=== PATIENT | male | born 1955 | race Caucasian/White ===

== ENCOUNTER 2025-03-08 11:59 | Outpatient (REF) | payer BC, SELFPAY ==
--- OUTSIDE RECORDS SUMMARY | 2025-03-08 12:27 | XMS_ITS | Encounter Summary ---
Author Organization [facility] Address [address] [place] [address] Care Team Providers Care Caul Dresser Name Role Phone Ruchi Read FERR[employer]BOAT TICKET TAKER Primary Care Provider [phone] Encounter Details Date Type Department Care Team (Late Contact Info) Description 09/28/2024 Telephone Internal Medicine - [facility] [address] [place] [address] Ruchi Read NP [address] [place] [address] Social History Tobacco Use Types Packs/Day Years Used Date Smoking Tobacco: Every Day Cigarettes 1 56.4 Started: 10/18/1968 Smokeless Tobacco: Never Alcohol Use Standard Drinks/Week Comments Yes 7 (1 standard drink = 0.6 oz pur e alcohol) Sex and Gender Information Value Date Recorded Sex Assigned at Male 11/22/2024 3:08 PM EST Legal Sex Male 4:53 PM EST Gender Identity Male 11/22/2024 3:08 PM EST Sexual Orientation Straight 11/22/2024 3: 08 PM EST documented as of this encounter Plan of Treatment Upcoming Encounters Date Type Department Care Team (Late st Contact Info) Description 03/13/2025 11:30 AM EDT Office Visit Pulmonology - [address] [place] [phone] Annelise Martinez MD [address] [place] [phone] documented as of this encounter Visit Diagnoses Diagnosis Chronic midline low back pain with bilateral sciatica documented in this encounter Additional Health Concerns Infection Onset Date Last Indicated Resolved Time Tuberculosis Rule-Out 11/27/2024 11/27/20242024 7:04 PM EST Respiratory Rule-Out 12/29/2024 12/29/2024 025 10:29 PM EDT COVID-19 Rule-Out 12/29/2024 12/29/2024 12/29/2024 10:29 PM EDT Influenza 12/29/2024 12/29/2024 01/22/2025 7:04 PM EDT documented as of this encounter Care Teams Caul Dresser Relationship Specialty Start Date End Date Ruchi Read NP [address] [facility] [place] [address] PCP - General 11/12/22 documented as of this encounter
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
--- OUTSIDE RECORDS SUMMARY | 2025-03-08 12:27 | XMS_ITS ---
Author Name [facility] Organization Unknown Results Test Name/Text Value Interpretation Date Range Source Citation Ref Lab Test The technical components of [place] [address] CLIA # [id number] Normal [id number] [facility] Ref Lab Test Results See Scanned Result Normal [id number] [facility] Test Results See Scanned Result Normal [id number] [facility] Test Results See Scanned Result Normal [id number] [facility] History of Medication Use Medication Directions Dispensed Refills Start Date End Date Status albuterol 2.5 mg /3 mL (0.083 %) nebulizer solution 2.5 mg 2.5 mg, nebulization, Once as needed, wheezing, Starting on Wed11/27/24 at 1525, For 1 dose, Recovery (only) 5 active diphenhydrAMINE (BENADRYL) injection 25 mg 25 mg, intravenous, Every 15 min PRN, itching, Starting on Wed11/27/24 at 1525, Recovery (only) 5 active hydrALAZINE (APRESOLINE) injection 10 mg 10 mg, intravenous, Every 10 min PRN, systolic BP greater than:, 170, Starting on Wed11/27/24 at 1535, For 8 doses, Recovery (only), For IV Push - administer undiluted at 5 mg/min 5 active HYDROmorphone (DILAUDID) injection 0.5 mg 0.5 mg, intravenous, Every 5 min PRN, severe pain or when therapies for moderate pain were not effective, Starting on Wed11/27/24 at 1525, For 5 doses, Recovery (only) 5 active lactated Ringer's infusion 100 mL/hr, intravenous, Continuous, Starting on Wed11/27/24 at 1545, Recovery (only) 5 active meperidine (PF) (DEMEROL) 25 mg/mL injection 12.5 mg 12.5 mg, intravenous, Every 15 min PRN, rigors, shivering, Starting on Wed11/27/24 at 1525, For 4 doses, Recovery (only) 5 active ondansetron ODT (ZOFRAN-ODT) disintegrating tablet 4 mg [Order 1 Start] Name: ondansetron ODT (ZOFRAN-ODT) disintegrating tablet 4 mg Signed Summary: 4 mg, oral, Every 8 hours PRN, vomiting, nausea, Starting on Wed11/27/24 at 1525, Recovery (only), -Give IV if patient is unable to take orally. -If inadequate response within 30 minutes, proceed to next- 5 active oxyCODONE (ROXICODONE) immediate release tablet 5 mg 5 mg, oral, Every 4 hours PRN, moderate pain or when therapies for mild pain were not effective, Starting on Wed11/27/24 at 1525, For 2 doses, Recovery (only) 5 active prochlorperazine (COMPAZINE) tablet 10 mg [Order 1 Start] Name: prochlorperazine (COMPAZINE) tablet 10 mg Signed Summary: 10 mg, oral, Every 6 hours PRN, nausea, vomiting, Starting on Wed11/27/24 at 1525, Recovery (only), 2nd Line Option: -Give IV or IM if patient is unable to take orally. -If inadequate response within 30 minutes, proceed 5 active sodium chloride 0.9 % flush 10 mL [Order 1 Start] Name: Insert peripheral IV Signed Summary: STAT, Once, On Wed11/27/24 at 1214, For 1 occurrence, Preprocedure [Order 1 End] [Order 2 Start] Name: Maintain IV access Signed Summary: Until discontinued, Starting on Wed11/27/24 at 1214, Until Specified, Preprocedure [Order 2 End] [Order 5 active hydroCHLOROthiazide (HYDRODIURIL) 25 mg tablet TAKE 1 TABLET BY MOUTH EVERY DAY 5 active losartan (Cozaar) 50 mg tablet Take 1 tablet (50 mg total) by mouth 1 (one) time each day. 4 active Wixela Inhub 250-50 mcg/dose diskus inhaler Inhale 1 puff by mouth 2 (two) times a day. 4 active fluticasone furoate-vilanteroL (Breo Ellipta) 100-25 mcg/dose inhaler Inhale 1 puff by mouth 1 (one) time each day. 4 active Problems Problem Status Onset Date Problem Type Date of Resolution Source Pain active EncounterDiagnosisAct [facility] Pulmonary nodule active 2023-01-19 ProblemAct [facility] Emphysema lung active 2024-06-02 ProblemAct [facility] Primary hypertension active 2024-02-23 ProblemAct [facility] Chronic back pain active 2024-09-22 ProblemAct [facility] Tobacco use disorder active 2024-04-10 ProblemAct [facility] Encounters Encounter Type Encounter Reason Primary Diagnosis Location Date Ambulatory Pain, unspecified Pain, unspecified [facility] 11/27/2024 Care Team Organization Name Specialty Phone Email Start Date End Da te [facility] Primary Care 12/27/2024 [facility] Primary Care 11/27/2024
--- OUTSIDE RECORDS SUMMARY | 2025-03-08 12:27 | XMS_ITS | Clinical Summary ---
Author Organization [address] [facility] Address [address] [place] [phone] Phone Care Team Providers Care Office Machine Embossograph Operator Name Role Phone Jacek Ruchi DOORSHAKER Primary Care Provider [phone] Allergies No known active allergies Medications losartan (Cozaar) 50 mg tablet Take 1 tablet (50 mg total) by mouth 1 (one) time each day. 90 each 1 10/17/2024 Active hydroCHLOROthia zide (HYDRODIURIL) 25 mg tablet TAKE 1 TABLET BY MOUTH EVERY DAY 90 tablet 1 11/07/2024 Active Wixela Inhub 250-50 mcg/dose diskus inhaler Inhale 1 puff by mouth 2 (two) times a day. 10/17/2024 Active ALPRAZolam (XANAX) 0.5 mg tablet Take 1 tablet 30 minutes prior to MRI scan. 2 tablet 01/31/2025 Active Active Problems Problem Noted Date Diagnosed Date Chronic back pain 09/22/2024 Overview (09/22/2024): Lumbar fusion 2002. Emphysema lung (CMS/HCC V24, CMS/HCC V28) 2023 Tobacco use disorder 04/10/2024 Primary hypertension 02/23/2024 Pulmonary nodule 01/19/2023 Overview (08/10/2024): Last Assessment & Plan: 67 y/o male, current smoker who is part of the Lung Cancer Screening Program. 1. LDCT scan performed in December shows resolution of infectious/inflammatory opacity. 9mm DAVEY pulmonary nodule remains stable. Recommend [facility] recommendation for repeat CT surveillance scan is 6-12 months. Patient requesting 6 month follow-up CT scan with office visit with PA after. 2. Patient instructed to call office with any questions or concerns. Assessment & Plan (11/16/2024 12:53 PM EST): 69-year-old man with consolidation/mass at the apex of the left upper lobe and a separate spiculated nodule of the left upper lobe that are PET avid. I had a long discussion with him and his family about the findings on his CAT scan and PET scan as described in HPI. We also talked about pulmonary nodules in general and how their size, shape, and frame changer time affect her level of suspicion for malignancy. I do think that the consolidated area at the apex is less suspicious although there is a portion of it that is PET avid as well as the separate nodule in the left upper lobe. I did discuss the options which would be including continued observation versus biopsy versus surgery. Surgery is not a great option in this case due to the size and position of these nodules. Ultimately, they want to proceed with a biopsy and I discussed a robotic bronchoscopy with biopsy with interventional pulmonary. I did also discuss this with Dr. Hannah our interventional label press operator in the office and she will see them just after I see them. All questions were answered and I will see him after the biopsies have been completed. Encounters Date Type Department Care Team Description 02/28/2025 2:30 PM EDT - 02/28/2025 11:59 PM EDT Hospital Encounter Radiology Department - [address] [phone] Falls frequently; Weakness; Syncope, unspecified syncope type Discharge Disposition: Home or Self Care 02/26/2025 8:53 AM EDT - 02/26/2025 11:59 PM EDT Hospital Encounter [facility] CT Scan [address] [place] [id number] Pneumonia due to infectious organism, unspecified laterality, unspecified part of lung Discharge Disposition: Home or Self Care 02/20/2025 [facility]phone [facility] [address] [facility] [place] [phone] Ruchi Read NP MRI 02/16/2025 9:33 AM EDT - 02/16/2025 11:59 PM EDT Hospital Encounter Radiology Department - [address] [phone] Falls frequently; Weakness; Syncope, unspecified syncope type Discharge Disposition: Home or Self Care 02/16/2025 9:33 AM EDT - 02/16/2025 11:59 PM EDT Hospital Encounter Radiology Department - [address] [phone] Falls frequently; Weakness; Syncope, unspecified syncope type Discharge Disposition: Home or Self Care 02/06/2025 Telephone Internal Medicine - [address] [phone] Ruchi Read NP Forms/questionnaires (RMV--Medical Evaluation Form) 01/29/2025 2:00 PM EDT Office Visit Internal Medicine - [address] [phone] Ruchi Read NP Falls frequently (Primary Dx); Weakness; Syncope, unspecified syncope type; Chronic midline low back pain without sciatica; Hyperesthesia; Transient alteration of awareness 01/24/2025 Telephone Internal Medicine - [address] [phone] Ruchi Read NP Fall 01/22/2025 Telephone Internal Medicine - [address] [phone] Ruchi Read NP 01/02/2025 1:22 PM EDT - 01/02/2025 11:59 PM EDT Hospital Encounter [facility] - [address] [phone] Renal mass Discharge Disposition: Home or Self Care 12/29/2024 2:15 PM EDT Office Visit Internal Medicine - [address] [phone] Ruchi Read NP Encephalopathy, unspecified type (Primary Dx); Shakes; Acute cough; Confusion; Viral upper respiratory tract infection 12/25/2024 Telephone Internal Medicine - [address] [phone] Ruchi Read NP Altered Mental Status 12/25/2024 Telephone Internal Medicine - [address] [phone] Ruchi Read NP Memory Loss from Last 3 Months Surgical History Surgery Date Site/Laterality Comments BACK SURGERY PROCEDURE: HISTORICAL BACK SURGERY HERNIA REPAIR PROCEDURE: HISTORICAL HERNIA REPAIR/ING BACK SURGERY PROCEDURE: HISTORICAL BACK SURGERY CATARACT EXTRACTION PROCEDURE: HISTORICAL CATARACT REMOVAL COLONOSCOPY TONSILLECTOMY Medical History Medical History Date Comments History of colonoscopy 08/2011 DX:Histor y of colonoscopy; COMMENT: 10 yr f/u Dr. Tean Current smoker DX:Current smoke r Unspecified hemorrhoids DX:Unspe cified hemorrhoids Diverticulitis of colon (wit hout mention of hemorrhage)(562.11) DX:Diverticulitis of colon ( without mention of hemorrhage)(562.11) Diverticulosis DX:Diverticulosi s Hemorrhoids DX:Hemorrhoids Nontoxic single thyroid nodule D X:Nontoxic single thyroid nodule; COMMENT: s/p biopsy- benign pathology Pulmonary nodule DX:Pulmonary no dule Hypertension Emphysema of lung (CMS/HCC V 24, CMS/HCC V28) Reported by Family History Medical History Relation Name Comments Lung cancer Father Diabetes Mother Relation Name Status Comments Father Mother Social History Tobacco Use Types Packs/Day Years Used Date Smoking Tobacco: Every Day Cigarettes 1 56.4 Started: 10/18/1968 Smokeless Tobacco: Never Tobacco Cessation:Ready to Q uit: Not Asked; Counseling Given: Not Answered Comments:11/22/2024 Decreased to 0.5PPD Alcohol Use Standard Drinks/Week Comments Yes 0 (1 standard drink = 0.6 oz pur e alcohol) 1 bottle wine/day Sex and Gender Information Value Date Recorded Sex Assigned at Male 11/22/2024 3:08 PM EST Legal Sex Male 4:53 PM EST Gender Identity Male 11/22/2024 3:08 PM EST Sexual Orientation Straight 11/22/2024 3: 08 PM EST Obstetrics History Last Filed Vital Signs Vital Sign Reading Time Taken Comments Blood Pressure 153/81 01/29/2025 1:58 PM EDT A Pulse 104 01/29/2025 1:58 PM EDT Temperature 36.9 ??C (98.4 ??F) 12/05/2024 10:[address] Respiratory Rate 14 12/05/2024 10:30 AM EST Oxygen Saturation 97% 12/05/2024 10:30 AM EST Inhaled Oxygen Concentration - - Weight 72.2 kg (159 lb 3.2 oz) 01/29/2025 1:58 P M EDT Height 182.9 cm (6') 01/29/2025 1:58 PM EDT Body Mass Index 21.59 01/29/2025 1:58 PM EDT Plan of Treatment Upcoming Encounters Date Type Department Care Team (Late st Contact Info) Description 03/13/2025 11:30 AM EDT Office Visit Pulmonology - [address] [phone] Annelise Martinez MD [address] [place] [address] Health Maintenance Due Date Last Done Comments DTaP,Tdap,and Td Vaccines (1 - Tdap) 1972 Pneumococcal Vaccine: 50+ Years (1 of 2 - PCV) 1972 Zoster Vaccines (1 of 2) 2003 RSV Immunization Adult Patients (1 - Risk 60-74 years 1-dose series) 2013 Depression Screening 11/16/2023 Lung Cancer Screening (Low Dose CT) 11/16/2023 09/16/2022 Medicare Annual Wellness Visit 11/16/2023 Social Influencers of Health Screening 11/16/2023 COVID-19 Vaccine ( - season) 2024 01/09/2021, 12/13/2020 Influenza Vaccine (Season Ended) 2025 Falls Risk Assessment 11/27/2025 11/27/2024 Hypertension/CHF/CAD Annual BMP Blood Test 01/29/2026 01/29/2025, 12/29/2024, 11/22/2024, Additional history exists Cholesterol Screening (Lipid Panel) 06/02/2029 06/02/2024, 06/02/2024 Colorectal Cancer Screening: Colonoscopy 08/18/2031 08/18/2021 Hepatitis C Screening Completed 02/16/2023, 023 Abdominal Aortic Aneurysm (AAA) Screen Completed 01/02/2025, 03/08/2023, 03/08/2023, Additional history exists HIB Vaccines Aged Out No longer eligi ble based on patient's age to complete this topic HPV Vaccines Aged Out No longer eligi ble based on patient's age to complete this topic Hepatitis A Vaccines Aged Out No long er eligible based on patient's age to complete this topic Hepatitis B Vaccines Aged Out No long er eligible based on patient's age to complete this topic IPV Vaccines Aged Out No longer eligi ble based on patient's age to complete this topic MMR Vaccines Aged Out No longer eligi ble based on patient's age to complete this topic Meningococcal ACWY Vaccine Aged Out N o longer eligible based on patient's age to complete this topic Meningococcal B Vaccine Aged Out No l onger eligible based on patient's age to complete this topic RSV Immunization Patients Under 20 months Aged Out No longer eligible based on patient's age to complete this topic Varicella Vaccines Aged Out No longer eligible based on patient's age to complete this topic Procedures Procedure Name Priority Date/Time Associated Diagnosis Comments VAS US DUPLEX CAROTID BILATERAL Routine 02/28/2025 2:54 PM EDT Falls frequently Weakness Syncope, unspecified syncope type CT CHEST WO CONTRAST Routine 02/26/2025 9:10 AM EDT Pneumonia due to infectious organism, unspecified laterality, unspecified part of lung MR LUMBAR SPINE WO CONTRAST Routine 02/16/2025 11:13 AM EDT Falls frequently Weakness Syncope, unspecified syncope type MR BRAIN WO CONTRAST Routine 02/16/2025 10:53 AM EDT Falls frequently Weakness Syncope, unspecified syncope type CEJA URINE CULTURE TUBE Routine 01/30/20 25 4:33 PM EDT Falls frequently Weakness Syncope, unspecified syncope type CBC WITH AUTO DIFFERENTIAL Routine 01/29/2025 2:38 PM EDT Falls frequently Weakness Syncope, unspecified syncope type URINALYSIS WITH REFLEX MICROSCOPIC AND CULTURE Routine 01/29/2025 2:38 PM EDT Falls frequently Weakness Syncope, unspecified syncope type CBC AND DIFFERENTIAL Routine 01/29/2025 2:38 PM EDT Falls frequently Weakness Syncope, unspecified syncope type COMPREHENSIVE METABOLIC PANEL Routine 01/29/2025 2:38 PM EDT Falls frequently Weakness Syncope, unspecified syncope type URINALYSIS WITH REFLEX MICROSCOPIC AND CULTURE Routine 01/29/2025 2:38 PM EDT Falls frequently Weakness Syncope, unspecified syncope type THYROID STIMULATING HORMONE WITH REFLEX TO FREE T4 AND FREE T3 Routine 01/29/2025 2:38 PM EDT Falls frequently Weakness Syncope, unspecified syncope type US RETROPERITONEAL LIMITED Routine 01/02/2025 1:50 PM EDT Renal mass EXTERNAL CT REPORT 12/31/2024 CEJA URINE CULTURE TUBE Routine 12/30/19 25 4:38 PM EDT Encephalopathy, unspecified type Shakes Acute cough Confusion Viral upper respiratory tract infection [id number], RSV, FLU A AND B QUALITATIVE RT-PCR, LOCAL REFERENCE LAB Routine 12/29/2024 3:28 PM EDT Viral upper respiratory tract infection TRIIODOTHYRONINE FREE Routine 12/29/2024 3:19 PM EDT Encephalopathy, unspecified type Shakes Acute cough Confusion Viral upper respiratory tract infection FREE THYROXINE WITH REFLEX TO FREE TRIIODOTHYRONINE Routine 12/29/2024 3:19 PM EDT Encephalopathy, unspecified type Shakes Acute cough Confusion Viral upper respiratory tract infection CBC WITH AUTO DIFFERENTIAL Routine 12/29/2024 3:19 PM EDT Encephalopathy, unspecified type Shakes Acute cough Confusion Viral upper respiratory tract infection URINALYSIS WITH REFLEX MICROSCOPIC AND CULTURE Routine 12/29/2024 3:19 PM EDT Encephalopathy, unspecified type Shakes Acute cough Confusion Viral upper respiratory tract infection CBC AND DIFFERENTIAL Routine 12/29/2024 3:19 PM EDT Encephalopathy, unspecified type Shakes Acute cough Confusion Viral upper respiratory tract infection COMPREHENSIVE METABOLIC PANEL Routine 12/29/2024 3:19 PM EDT Encephalopathy, unspecified type Shakes Acute cough Confusion Viral upper respiratory tract infection URINALYSIS WITH REFLEX MICROSCOPIC AND CULTURE Routine 12/29/2024 3:19 PM EDT Encephalopathy, unspecified type Shakes Acute cough Confusion Viral upper respiratory tract infection THYROID STIMULATING HORMONE WITH REFLEX TO FREE T4 AND FREE T3 Routine 12/29/2024 3:19 PM EDT Encephalopathy, unspecified type Shakes Acute cough Confusion Viral upper respiratory tract infection LIPID PANEL Routine 06/02/2024 HEPATITIS C SCREENING Routine 02/16/2023 CT LUNG SCREENING LOW DOSE Routine 09/16/2022 1:41 PM EST Personal history of nicotine dependence COLONOSCOPY Routine 08/18/2021 from Last 3 Months or Most Recently Relevant to Health Maintenance Results * Vascular US duplex carotid bilateral (02/28/2025 2:54 PM EDT) Anatomical Region Laterality Modality Vascular, Abdomen Ultrasound 02/28/2025 4:12 PM EDT Impressions 02/28/2025 4:17 PM EDT Multiple bilateral atherosclerotic plaques, left greater than the right. ??No evidence of 50% or greater stenosis in the internal carotid arteries. -------- FINAL REPORT -------- Dictated By: Vianey Montiel Dictated Date: 02/28/2025 16:12 ET Assigned Physician: Vianey Montiel Reviewed and Electronically Signed By: Vianey Montiel Signed Date: 02/28/2025 16:17 ET Workstation ID: [id number] Transcribed By: Self Edit Transcribed Date: 02/28/2025 16:12 ET Narrative 02/28/2025 4:17 PM EDT EXAM: ??VAS US DUPLEX CAROTID BILATERAL COMPARISON:None CAROTID ULTRASOUND FINDINGS: RIGHT: Peak external carotid artery: 99.1 cm/sec Peak vertebral: 49.6 cm/sec and antegrade Peak common carotid artery: 73.4 cm/sec Peak internal carotid artery: 79.8 cm/sec Carotid artery morphology: Multiple atherosclerotic plaques. Peak systolic ratio is normal. LEFT: Peak external carotid artery: 96.6 cm/sec Peak vertebral: 56.2 cm/sec and antegrade Peak common carotid artery: 139 cm/sec Peak internal carotid artery: 96.6 cm/sec Carotid artery morphology: Multiple atherosclerotic plaques, more prominent than contralateral side. Peak systolic ratio is normal. Any stenosis measurement is relative to the distal ICA diameters. Procedure Note Vianey Montiel MD - 02/28/2025 EXAM: VAS US DUPLEX CAROTID BILATERAL COMPARISON:None CAROTID ULTRASOUND FINDINGS: RIGHT: Peak external carotid artery: 99.1 cm/sec Peak vertebral: 49.6 cm/sec and antegrade Peak common carotid artery: 73.4 cm/sec Peak internal carotid artery: 79.8 cm/sec Carotid artery morphology: Multiple atherosclerotic plaques. Peak systolic ratio is normal. LEFT: Peak external carotid artery: 96.6 cm/sec Peak vertebral: 56.2 cm/sec and antegrade Peak common carotid artery: 139 cm/sec Peak internal carotid artery: 96.6 cm/sec Carotid artery morphology: Multiple atherosclerotic plaques, moreprominent than contralateral side. Peak systolic ratio is normal. Any stenosis measurement is relative to the distal ICA diameters. IMPRESSION: Multiple bilateral atherosclerotic plaques, left greater than the right.No evidence of 50% or greater stenosis in the internal carotid arteries. -------- FINAL REPORT -------- Dictated By: Vianey Montiel Dictated Date: 02/28/2025 16:12 ET Assigned Physician: Vianey Montiel Reviewed and Electronically Signed By: Vianey Montiel Signed Date: 02/28/2025 16:17 ET Workstation ID: [id number] Transcribed By: Self Edit Transcribed Date: 02/28/2025 16:12 ET Ruchi Read NP CV VASCULAR PROCEDURES Final Re sult * CT Chest wo Contrast (02/26/2025 9:10 AM EDT) Anatomical Region Laterality Modality Body Computed Tomogra phy 02/26/2025 10:1 1 AM EDT Impressions 02/26/2025 10:26 AM EDT Impression: 1. Improved posterior left apical consolidation, most likely representing a resolving pneumonia. 2. Improved anterior left upper lobe nodule, most likely also infectious/inflammatory. An additional follow-up CT is recommended in 6 months. Telerad KEITH ([id number]) -------- FINAL REPORT -------- Dictated By: Cami Ku Dictated Date: 02/26/2025 10:11 ET Assigned Physician: Cami Ku Reviewed and Electronically Signed By: Cami Ku Signed Date: 02/26/2025 10:26 ET Workstation ID: [id number] Transcribed By: Self Edit Transcribed Date: 02/26/2025 10:11 ET Narrative 02/26/2025 10:26 AM EDT History: Pneumonia. COPD exacerbation. Comparison: 09/26/24 ([facility]), 09/17/23 ([facility]), PET CT 10/31/24 ([facility]) Technique: Helical volumetric imaging of the thorax was performed without IV contrast. DLP: 697.89 mGy/cm [email or web address] VCT Iterative reconstruction technique Findings: The metabolically active posterior left apical process has significantly improved since the previous studies and most likely represents a resolving pneumonia. Continued follow-up is recommended. Abutting the process now are within cystic airspaces, possibly pneumatoceles, which are more pronounced than on the previous exams. The metabolically active anterior left upper lobe nodule described on the PET/CT is also smaller and less round, now more triangular in shape, measuring approximately 16 x 10 mm in maximum axial dimensions (image 66 series 4). There is also a thin- walled airspace abutting this lesion now, possibly a postinfectious pneumatocele. The trachea and central bronchial tree remains patent. Diffuse bronchial wall thickening is similar to previous studies, consistent with bronchitis. There is severe emphysematous destruction of the pulmonary parenchyma bilaterally, a combination of centrilobular and paraseptal emphysema. A 3 mm solid, noncalcified nodule is seen in the superior segment of the right lower lobe (image 152 series 4), similar to the 09/26/24 study but new from 2022. A 3 mm solid, noncalcified left upper lobe nodule with surrounding groundglass attenuation (image 102) is unchanged since at least 2022. No pleural or pericardial effusions are seen. The heart remains normal in size. Atherosclerotic calcification of the thoracic aorta and coronary arteries is again seen. Included portions of the thyroid gland are without suspicious nodule. No developing thoracic lymphadenopathy is seen. A small portion of the upper abdomen included on the lowest images through the thorax is without significant abnormality. The regional skeleton is intact. Procedure Note Cami Ku MD - 02/26/2025 History: Pneumonia. COPD exacerbation. [facility] ([facility]),PET CT 10/31/24 ([facility]) Technique: Helical volumetric imaging of the thorax was performed withoutIV contrast. DLP: 697.89 mGy/cm [employer] VCT Iterative reconstruction technique Findings: The metabolically active posterior left apical process has significantlyimproved since the previous studies and most likely represents a resolvingpneumonia. Continued follow-up is recommended. Abutting the process noware within cystic airspaces, possibly pneumatoceles, which are morepronounced than on the previous exams. The metabolically active anterior left upper lobe nodule described on thePET/CT is also smaller and less round, now more triangular in shape,measuring approximately 16 x 10 mm in maximum axial dimensions (image 66series 4). There is also a thin- walled airspace abutting this lesion now,possibly a postinfectious pneumatocele. The trachea and central bronchial tree remains patent. Diffuse bronchialwall thickening is similar to previous studies, consistent withbronchitis. There is severe emphysematous destruction of the pulmonaryparenchyma bilaterally, a combination of centrilobular and paraseptalemphysema. A 3 mm solid, noncalcified nodule is seen in the superior segment of theright lower lobe (image 152 series 4), similar to the 09/26/24 study butnew from 2022. A 3 mm solid, noncalcified left upper lobe nodule withsurrounding groundglass attenuation (image 102) is unchanged since atleast 2022. No pleural or pericardial effusions are seen. The heart remains normal in size. Atherosclerotic calcification of thethoracic aorta and coronary arteries is again seen. Included portions ofthe thyroid gland are without suspicious nodule. No developing thoraciclymphadenopathy is seen. A small portion of the upper abdomen included on the lowest images throughthe thorax is without significant abnormality. The regional skeleton is intact. IMPRESSION: Impression: 1. Improved posterior left apical consolidation, most likely representinga resolving pneumonia. 2. Improved anterior left upper lobe nodule, most likely alsoinfectious/inflammatory. An additional follow-up CT is recommended in 6 months. Telerad KEITH ([id number]) -------- FINAL REPORT -------- Dictated By: Cami Ku Dictated Date: 02/26/2025 10:11 ET Assigned Physician: Cami Ku Reviewed and Electronically Signed By: Cami Ku Signed Date: 02/26/2025 10:26 ET Workstation ID: [id number] Transcribed By: Self Edit Transcribed Date: 02/26/2025 10:11 ET Annelise Martinez MD IM CT PROCEDURES Final Re sult * MR Lumbar Spine wo Contrast (02/16/2025 11:13 AM EDT) Anatomical Region Laterality Modality L-spine, Spine Magnetic Resonan ce 02/16/2025 5:17 PM EDT Impressions 02/18/2025 4:04 PM EDT Diffuse degenerative changes. ??No evidence of nerve root impingement or high- grade spinal canal stenosis. POS - [id number] -------- FINAL REPORT -------- Dictated By: Jennifer Salvador Dictated Date: 02/16/2025 17:17 ET Assigned Physician: Jennifer Salvador Reviewed and Electronically Signed By: Jennifer Salvador Signed Date: 02/18/2025 16:04 ET Workstation ID: [id number] Transcribed By: Self Edit Transcribed Date: 02/16/2025 17:48 ET Narrative 02/18/2025 4:04 PM EDT EXAM: Lumbar spine MRI HISTORY: ??Low back pain. ??Progressive neurologic deficit. ??Weakness. ??Frequent falls. ??Remote history of prior surgery. COMPARISON: None CORRELATION: ??None TECHNIQUE: Exam performed on a 1.5 Mikki high-field MRI scanner. ??Multiplanar imaging performed without contrast. FINDINGS: Numbering of the vertebral bodies is based on the assumption that inferior most disc space is L5-S1. Conus medullaris terminates at L1-2 which is within normal limits. ??No abnormal cord signal. Vertebral body heights are maintained. ??1 cm T1/T2 hyperintense signal lesion within L2 likely represents a hemangioma. ??Possible other small hemangiomas versus heterogeneous fat signal in the vertebral bodies. ??Irregular dark signal in the partially imaged right femoral head on the localizer sequences corresponds with irregular sclerosis in the femoral head on prior PET/CT exams from 2022 and 2023 likely representing avascular necrosis. ?? L1-L2: No significant disc bulging or evidence of a disc protrusion or extrusion. ??Bilateral facet arthropathy. ??No significant neural foraminal narrowing or spinal canal stenosis. L2-L3: Disc desiccation and minimal disc bulging. ??Small disc protrusion into the left inferior neural foramen without mass effect on the exiting nerve root. ??Bilateral facet arthropathy. ??Left foraminal endplate spurring. ??No significant neural foraminal narrowing or spinal canal stenosis. L3-L4: Disc desiccation, disc bulging, and a possible superimposed very small central disc protrusion. ??Bilateral facet arthropathy. ??Left foraminal endplate spurring. ??No significant neural foraminal narrowing or spinal canal stenosis. L4-L5: Disc desiccation and disc bulging asymmetrically prominent to the right. ??Bilateral facet arthropathy. ??Right foraminal endplate spurring. ??Mild to moderate right and mild left neural foraminal narrowing. ??No significant spinal canal stenosis. L5-S1: Disc desiccation, moderate loss of disc height, and disc bulging. ??Bilateral facet arthropathy, right greater than left. ??Laminectomy changes on the left. ??Posterior endplate spurring in the right paracentral region and in the foraminal regions. ??Mild right neural foraminal narrowing. ??No significant left neural foraminal narrowing or spinal canal stenosis. Procedure Note Jennifer Salvador MD - 02/18/2025 EXAM: Lumbar spine MRI HISTORY: Low back pain. Progressive neurologic deficit. Weakness.Frequent falls. Remote history of prior surgery. COMPARISON: None CORRELATION: None TECHNIQUE: Exam performed on a 1.5 Mikki high-field MRI scanner.Multiplanar imaging performed without contrast. FINDINGS: Numbering of the vertebral bodies is based on the assumption that inferiormost disc space is L5-S1. Conus medullaris terminates at L1-2 which is within normal limits. Noabnormal cord signal. Vertebral body heights are maintained. 1 cm T1/T2 hyperintense signallesion within L2 likely represents a hemangioma. Possible other smallhemangiomas versus heterogeneous fat signal in the vertebral bodies.Irregular dark signal in the partially imaged right femoral head on thelocalizer sequences corresponds with irregular sclerosis in the femoralhead on prior PET/CT exams from 2022 and 2023 likely representingavascular necrosis. L1-L2: No significant disc bulging or evidence of a disc protrusion orextrusion. Bilateral facet arthropathy. No significant neural foraminalnarrowing or spinal canal stenosis. L2-L3: Disc desiccation and minimal disc bulging. Small disc protrusioninto the left inferior neural foramen without mass effect on the exitingnerve root. Bilateral facet arthropathy. Left foraminal endplatespurring. No significant neural foraminal narrowing or spinal canalstenosis. L3-L4: Disc desiccation, disc bulging, and a possible superimposed verysmall central disc protrusion. Bilateral facet arthropathy. Leftforaminal endplate spurring. No significant neural foraminal narrowing orspinal canal stenosis. L4-L5: Disc desiccation and disc bulging asymmetrically prominent to theright. Bilateral facet arthropathy. Right foraminal endplate spurring.Mild to moderate right and mild left neural foraminal narrowing. Nosignificant spinal canal stenosis. L5-S1: Disc desiccation, moderate loss of disc height, and disc bulging.Bilateral facet arthropathy, right greater than left. Laminectomy changeson the left. Posterior endplate spurring in the right paracentral regionand in the foraminal regions. Mild right neural foraminal narrowing. Nosignificant left neural foraminal narrowing or spinal canal stenosis. IMPRESSION: Diffuse degenerative changes. No evidence of nerve root impingement orhigh-grade spinal canal stenosis. POS - [id number] -------- FINAL REPORT -------- Dictated By: Jennifer Salvador Dictated Date: 02/16/2025 17:17 ET Assigned Physician: Jennifer Salvador Reviewed and Electronically Signed By: Jennifer Salvador Signed Date: 02/18/2025 16:04 ET Workstation ID: [id number] Transcribed By: Self Edit Transcribed Date: 02/16/2025 17:48 ET Ruchi Read NP IMG MRI PROCEDURES Final Result * MR Brain wo Contrast (02/16/2025 10:53 AM EDT) Anatomical Region Laterality Modality Head and Neck Magnetic Resonan ce 02/16/2025 4:57 PM EDT Impressions 02/19/2025 9:29 AM EDT Extensive nonspecific white matter signal abnormalities and a small signal abnormality in the angeles. ??Findings could be due to chronic small vessel ischemic disease. ??No evidence of recent ischemia. ??No mass or mass effect. ??Atrophy. POS - [id number] -------- FINAL REPORT -------- Dictated By: Jennifer Salvador Dictated Date: 02/16/2025 16:57 ET Assigned Physician: Jennifer Salvador Reviewed and Electronically Signed By: Jennifer Salvador Signed Date: 02/19/2025 09:29 ET Workstation ID: [id number] Transcribed By: Self Edit Transcribed Date: 02/16/2025 17:17 ET Narrative 02/19/2025 9:29 AM EDT EXAM: Brain MRI HISTORY: ??Memory loss. ??Dizziness. ??Frequent falls. COMPARISON: None CORRELATION: ??None TECHNIQUE: Exam performed on a 1.5 Mikki high-field MRI scanner. ??Multiplanar imaging performed without contrast. ?? FINDINGS: No restricted diffusion to indicate a recent infarct. ??No evidence of intracranial hemorrhage. ??Extensive confluent, patchy, and globular T2/FLAIR hyperintense white matter signal abnormalities. ??Patchy T2/FLAIR hyperintense signal in the angeles. No evidence of a mass, mass effect, or midline shift. ??Mild generalized atrophy. ??No hydrocephalus. ??Basal cisterns are patent. ??No cerebellar ectopia. ??Pituitary gland is not enlarged. ??Normal vascular flow-voids appear present in the major intracranial arteries at the skull base. Multi sinus mild mucosal thickening. ??No significant fluid signal within mastoid air cells. Procedure Note Jennifer Salvador MD - 02/19/2025 EXAM: Brain MRI HISTORY: Memory loss. Dizziness. Frequent falls. COMPARISON: None CORRELATION: None TECHNIQUE: Exam performed on a 1.5 Mikki high-field MRI scanner.Multiplanar imaging performed without contrast. FINDINGS: No restricted diffusion to indicate a recent infarct. No evidence ofintracranial hemorrhage. Extensive confluent, patchy, and globularT2/FLAIR hyperintense white matter signal abnormalities. Patchy T2/FLAIRhyperintense signal in the angeles. No evidence of a mass, mass effect, or midline shift. Mild generalizedatrophy. No hydrocephalus. Basal cisterns are patent. No cerebellarectopia. Pituitary gland is not enlarged. Normal vascular flow-voidsappear present in the major intracranial arteries at the skull base. Multi sinus mild mucosal thickening. No significant fluid signal withinmastoid air cells. IMPRESSION: Extensive nonspecific white matter signal abnormalities and a small signalabnormality in the angeles. Findings could be due to chronic small vesselischemic disease. No evidence of recent ischemia. No mass or masseffect. Atrophy. POS - [id number] -------- FINAL REPORT -------- Dictated By: Jennifer Salvador Dictated Date: 02/16/2025 16:57 ET Assigned Physician: Jennifer Salvador Reviewed and Electronically Signed By: Jennifer Salvador Signed Date: 02/19/2025 09:29 ET Workstation ID: [id number] Transcribed By: Self Edit Transcribed Date: 02/16/2025 17:17 ET Ruchi Read DOORSHAKER IMG MRI PROCEDURES Final Result * Ceja urine culture tube (01/29/2025 4:33 PM EDT) Only the most recent of2 resultswithin the time period is included. [facility] Extra Tube Hold for add-ons. 01/29/2025 7:01 PM EDT [facility] Comment:Auto resulted. Urine Urine specimen obtained by clean catch procedure / Unknown Non-blood Collection / Unknown 01/29/2025 4:33 PM EDT 01/29/2025 4:33 PM EDT Ruchi Read NP LAB URINE ORDERABLES Final Resu lt [facility] [address] [place] [address], * (ABNORMAL) Urinalysis with reflex microscopic and culture (01/29/2025 2:38 PM EDT) Only the most recent of2 resultswithin the time period is included. [facility] Specific [place] Urine 1.020 1.003 - 1.030 LAB URINALYSIS - AUTOMATED METHOD 01/29/2025 6:46 PM EDT [facility] pH, Urine 6.0 5.0 - 8.0 pH LAB URINALYSIS - AUTOMATED METHOD 01/29/2025 6:46 PM EDT [facility] Leukocytes, Urine Negative Negative LAB URINALYSIS - AUTOMATED METHOD 01/29/2025 6:46 PM EDT [facility] Nitrite, Urine Negative Negative LAB URINALYSIS - AUTOMATED METHOD 01/29/2025 6:46 PM EDT [facility] Protein, Urine Trace <=Trace mg/dL LAB URINALYSIS - AUTOMATED METHOD 01/29/2025 6:46 PM EDT [facility] Glucose, Urine Negative Negative mg/dL LAB URINALYSIS - AUTOMATED METHOD 01/29/2025 6:46 PM EDT [facility] Ketones, Urine Trace(A) Negative mg/dL LAB URINALYSIS - AUTOMATED METHOD 01/29/2025 6:46 PM EDT [facility] Urobilinogen, Urine 1.0 0.2 - 1.0 mg/dL LAB URINALYSIS - AUTOMATED METHOD 01/29/2025 6:46 PM EDT [facility] Bilirubin, Urine Negative Negative LAB URINALYSIS - AUTOMATED METHOD 01/29/2025 6:46 PM EDT [facility] Blood, Urine Negative Negative LAB URINALYSIS - AUTOMATED METHOD 01/29/2025 6:46 PM EDT [facility] Urine Urine specimen obtained by clean catch procedure / Unknown Non-blood Collection / Unknown 01/29/2025 2:38 PM EDT 01/29/2025 2:39 PM EDT Ruchi Read LAB URINE ORDERABLES Final Resu lt Performing Organization Address City/[facility]/ZIP Co de Phone Number [facility] [address] [place] [address], [place] [phone] * Thyroid stimulating hormone with reflex to free t4 and free t3 (01/29/2025 2:38 PM EDT) Only the most recent of2 resultswithin the time period is included. TSH 0.89 0.40 - 4.00 mcIU/mL LAB CHEMISTRY METHOD 01/29/2025 7:35 PM EDT [facility] Blood Venous blood specimen / Unknown Venipuncture / Unknown 01/29/2025 2:38 PM EDT 01/29/2025 2:39 PM EDT Ruchi Read LAB BLOOD ORDERABLES Final Resu lt Performing Organization Address City/[facility]/ZIP Co de Phone Number [facility] [address] [place] [address], [place] [phone] * (ABNORMAL) CBC auto differential (01/29/2025 2:38 PM EDT) Only the most recent of2 resultswithin the time period is included. WBC 6.9 4.8 - 10.8 K/mcL LAB HEMETOLOGY METHOD 01/29/2025 7:12 PM EDT [facility] RBC 3.90(L) 4.50 - 5.50 M/mcL LAB HEMETOLOGY METHOD 01/29/2025 7:12 PM EDT [facility] Hemoglobin 12.8(L) 13.5 - 17.5 g/dL LAB HEMETOLOGY METHOD [facility] Hematocrit 39.3(L) 42.0 - 54.0 % LAB HEMETOLOGY METHOD 01/29/2025 7:[facility] MCV 101.3(H) 79.0 - 98.0 FL LAB HEMETOLOGY METHOD 01/29/2025 7:[facility] MCH 33.0(H) 27.0 - 32.0 pcg LAB HEMETOLOGY METHOD 01/29/2025 7:[facility] MCHC 32.6 32.0 - 37.0 g/dL LAB HEMETOLOGY METHOD 01/29/2025 7:[facility] RDW 14.7 11.0 - 15.0 % LAB HEMETOLOGY METHOD 01/29/2025 7:[facility] Platelets 203 130 - 400 K/mcL LAB HEMETOLOGY METHOD 01/29/2025 7:[facility] MPV 10.1 7.0 - 11.0 FL LAB HEMETOLOGY METHOD 01/29/2025 7:[facility] NRBC 0.0 <1.0 % LAB HEMETOLOGY METHOD 01/29/2025 7:12 PM [facility] NRBC Absolute 0.00 <0.10 K/mcL LAB HEMETOLOGY METHOD 01/29/2025 7:12 PM [facility] Neutrophils Relative 63.5 % LAB HEMETOLOGY METHOD 01/29/2025 7:12 PM [facility] Lymphocytes Relative 22.2 % LAB HEMETOLOGY METHOD 01/29/2025 7:12 PM [facility] Monocytes Relative 9.7 % LAB HEMETOLOGY METHOD 01/29/2025 7:12 PM [facility] Eosinophils Relative 3.6 % LAB HEMETOLOGY METHOD 01/29/2025 7:12 PM [facility] Basophils Relative 0.6 % LAB HEMETOLOGY METHOD 01/29/2025 7:12 PM [facility] Immature Granulocytes Relative 0.4 % LAB HEMETOLOGY METHOD 01/29/2025 7:12 PM [facility] Neutrophils Absolute 4.40 1.50 - 7.00 K/mcL LAB HEMETOLOGY METHOD 01/29/2025 7:12 PM [facility] Lymphocytes Absolute 1.54 1.00 - 5.00 K/mcL LAB HEMETOLOGY METHOD 01/29/2025 7:12 PM [facility] Monocytes Absolute 0.67 0.20 - 1.00 K/mcL LAB HEMETOLOGY METHOD 01/29/2025 7:12 PM [facility] Eosinophils Absolute 0.25 0.00 - 0.50 K/mcL LAB HEMETOLOGY METHOD 01/29/2025 7:12 PM [facility] Basophils Absolute 0.04 0.00 - 0.20 K/mcL LAB HEMETOLOGY METHOD 01/29/2025 7:12 PM [facility] Immature Granulocytes Absolute 0.03 0.00 - 0.03 K/mcL LAB HEMETOLOGY METHOD 01/29/2025 7:12 PM EDT [facility] Blood Venous blood specimen / Unknown Venipuncture / Unknown 01/29/2025 2:38 PM EDT 01/29/2025 2:39 PM EDT us Ruchi Read NP LAB BLOOD ORDERABLES Final Resu lt [facility] [address] [place] [address], [place] [phone] * (ABNORMAL) Comprehensive metabolic panel (01/29/2025 2:38 PM EDT) Only the most recent of2 resultswithin the time period is included. Sodium 137 133 - 145 mmol/L LAB CHEMISTRY METHOD 01/29/2025 7:04 PM [facility] Potassium 5.2 3.5 - 5.5 mmol/L LAB CHEMISTRY METHOD 01/29/2025 7:04 PM [facility] Chloride 101 96 - 110 mmol/L LAB CHEMISTRY METHOD 01/29/2025 7:04 PM [facility] CO2 28 21 - 32 mmol/L LAB CHEMISTRY METHOD 01/29/2025 7:04 PM [facility] Anion Gap 8 3 - 11 LAB CHEMISTRY METHOD 01/29/2025 7:04 PM [facility] Glucose 108(H) 70 - 100 mg/dL LAB CHEMISTRY METHOD 01/29/2025 7:04 PM [facility] BUN 24 5 - 25 mg/dL LAB CHEMISTRY METHOD 01/29/2025 7:04 PM [facility] Creatinine 1.11 0.70 - 1.30 mg/dL LAB CHEMISTRY METHOD 01/29/2025 7:04 PM [facility] eGFR 71 >=60 mL/min/1. 73m2 LAB CHEMISTRY METHOD 01/29/2025 7:04 PM [facility] Comment:Calculation based on the??Chronic Kidney Disease Epidemiology Collaboration (CKD-EPI) equation refit??without adjustment for race. BUN/Creatinine Ratio 21.6 LAB CHEMISTRY METHOD 01/29/2025 7:04 PM [facility] Calcium 10.1 8.5 - 10.5 mg/dL LAB CHEMISTRY METHOD 01/29/2025 7:04 PM [facility] AST (SGOT) 44(H) 10 - 42 unit/L LAB CHEMISTRY METHOD 01/29/2025 7:04 PM [facility] ALT (SGPT) 35 10 - 60 unit/L LAB CHEMISTRY METHOD 01/29/2025 7:04 PM [facility] Alkaline Phosphatase 76 42 - 121 unit/L LAB CHEMISTRY METHOD 01/29/2025 7:04 PM [facility] Total Protein 8.2(H) 6.0 - 8.0 g/dL LAB CHEMISTRY METHOD 01/29/2025 7:04 PM [facility] Albumin 3.9 3.2 - 5.0 g/dL LAB CHEMISTRY METHOD 01/29/2025 7:04 PM [facility] Total Bilirubin 0.8 0.0 - 1.4 mg/dL LAB CHEMISTRY METHOD 01/29/2025 7:04 PM [facility] Blood Venous blood specimen / Unknown Venipuncture / Unknown 01/29/2025 2:38 PM EDT 01/29/2025 2:39 PM EDT Ruchi Read NP LAB BLOOD ORDERABLES Final Resu lt [facility] [address] [place] [address], * US Retroperitoneal Limited (01/02/2025 1:50 PM EDT) Anatomical Region Laterality Modality Body Ultrasound 01/02/2025 1:57 PM EDT Impressions 01/02/2025 1:58 PM EDT Normal renal ultrasound. -------- FINAL REPORT -------- Dictated By: Kiera Bush Dictated Date: 01/02/2025 13:57 ET Assigned Physician: Kiera Bush Reviewed and Electronically Signed By: Kiera Bush Signed Date: 01/02/2025 13:58 ET Workstation ID: [id number] Transcribed By: Self Edit Transcribed Date: 01/02/2025 13:57 ET Narrative 01/02/2025 1:58 PM EDT US RETROPERITONEAL LIMITED HISTORY: ??Renal mass. Nonspecific right upper pole renal activity on PET scan. Prior study: None currently available. FINDINGS: ??The right kidney measures 12.1 cm in length. The left kidney measures 10.8 cm in length. ??Both kidneys demonstrate normal echotexture. ??No hydronephrosis, masses, calculi, or perinephric collections are seen. The bladder is is not evaluated on this study. Procedure Note Kiera Bush MD - 01/02/2025 US RETROPERITONEAL LIMITED HISTORY: Renal mass. Nonspecific right upper pole renal activity on PETscan. Prior study: None currently available. FINDINGS: The right kidney measures 12.1 cm in length. The left kidneymeasures 10.8 cm in length. Both kidneys demonstrate normal echotexture.No hydronephrosis, masses, calculi, or perinephric collections are seen. The bladder is is not evaluated on this study. IMPRESSION: Normal renal ultrasound. -------- FINAL REPORT -------- Dictated By: Kiera Bush Dictated Date: 01/02/2025 13:57 ET Assigned Physician: Kiera Bush Reviewed and Electronically Signed By: Kiera Bush Signed Date: 01/02/2025 13:58 ET Workstation ID: [id number] Transcribed By: Self Edit Transcribed Date: 01/02/2025 13:57 ET Ruchi Read DOORSHAKER IMG US PROCEDURES Final Result * External CT Report (12/31/2024) Anatomical Region Laterality Modality Computed Tomogra phy Provider [facility] IMG CT PROCEDURES Final Result * (ABNORMAL) CIBC-[id number], RSV, Influenza A and B qualitative RT-PCR (12/29/2024 3:28 PM EDT) SARS COV-2 Not Detected Not Detected LAB MOLECULAR DIAGNOSTICS METHOD 12/29/2024 10:29 PM EDT [facility] Comment: Disclaimer: The manner in which this information is used to guide patient care is the responsibility of the healthcare provider. Testing was performed using the [employer] Alinity m SARS-CoV-2 test. This test has been authorized by FDA under an Emergency Use Authorization (EUA). This test is only authorized for the duration of time the declaration that circumstances exist justifying the authorization of the emergency use of in vitro diagnostic tests for detection of SARS-CoV-2 virus and/or diagnosis of COVID-19 infection under section 564(b)(1) of the Act, 21 U.S.C. 360bbb- 3(b)(1), unless the authorization is terminated or revoked sooner. Fact sheet for Healthcare Providers can be found at: https://www.fda.gov/media/581966/download Fact sheet for Patients can be found at: https://www.fda.gov/media/672647/download Influenza A PCR Detected(A ) Not Detected LAB MOLECULAR DIAGNOSTICS METHOD 12/29/2024 10:29 PM EDT [facility] Comment:This patient is posi tive for influenza A. If the patient is admitted, please order the Respiratory Virus Panel PCR (Epic ID: [id number]) so our lab can subtype the influenza A, per CDC recommendations. Influenza B PCR Not Detected Not Detected LAB MOLECULAR DIAGNOSTICS METHOD 12/29/2024 10:29 PM EDT [facility] RSV PCR Not Detected Not Detected LAB MOLECULAR DIAGNOSTICS METHOD 12/29/2024 10:29 PM EDT [facility] Swab Nasopharyngeal structure / Unknown Non-blood Collection / Unknown 12/29/2024 3:28 PM EDT 12/29/2024 3:29 PM EDT Ruchi Read NP LAB MICROBIOLOGY - GENERAL ORDDinah FALLON Final Result Performing Organization Address [facility]/ZIP Co de Phone Number [facility] [address] [place] [address], [place] [phone] * Free thyroxine with reflex to free triiodothyronine (12/29/2024 3:19 PM EDT) Free T4 1.50 0.70 - 1.80 ng/dL LAB CHEMISTRY METHOD 12/29/2024 7:34 PM EDT [facility] Blood Venous blood specimen / Unknown Venipuncture / Unknown 12/29/2024 3:19 PM EDT 12/29/2024 3:19 PM EDT us Ruchi Read DOORSHAKER LAB BLOOD ORDERABLES Final Resu lt Performing Organization Address [facility]/ZIP Co de Phone Number [facility] [address] [place] [address], [place] [phone] * Triiodothyronine free (12/29/2024 3:19 PM EDT) T3, Free 293 230 - 420 pcg/dL LAB CHEMISTRY METHOD 12/29/2024 8:00 PM EDT [facility] Blood Venous blood specimen / Unknown Venipuncture / Unknown 12/29/2024 3:19 PM EDT 12/29/2024 3:19 PM EDT Ruchi Read DOORSHAKER LAB BLOOD ORDERABLES Final Resu lt Performing Organization Address [facility]/ZIP Co de Phone Number [facility] [address] [place] [address], [place] [phone] * Lipid panel (06/02/2024) LDL/HDL Ratio 2 Triglycerides 110 mg/dL Cholesterol 257 mg/dL HDL 132 mg/dL LDL Cholesterol 103 mg/dL Blood Venous blood specimen / Unknown us Historical Provider LAB BLOOD ORDERABLES Elisa l Result * Hepatitis C Screening (02/16/2023) Hepatitis C Screening negative Historical Provider HEALTH MAINTENANCE Final Result * CT LUNG SCREENING LOW DOSE (09/16/2022 1:41 PM EST) Anatomical Region Laterality Modality Computed Tomogra phy 09/15/2022 3:31 PM EST Narrative 09/16/2022 1:41 PM EST [facility] Diagnostic Imaging Department [address] [place] [address] Patient: ??TONI RIZZO ?/Age/Sex: 1955 - 67 - M Unit#: ??[id number] ? Location/Status: ??SPDICATLS/REG CLI ? Mnemonic/Ordering Site: ??CTLUNGLD/SPCT Ordering Physician: ??TIMMY DUNCAN MD CT Lung Screening Low Dose - [birth year] - [birth year]45 PROCEDURE: CT Lung Screening Low Dose INDICATION: Tobacco abuse Current smoker with 53 pack year total. COMPARISON: None. TECHNIQUE: Noncontrast low dose chest CT was performed per lung cancer CT screening protocol. [employer] VCT dose reduction, utilizing iterative reconstruction. Total exam ??DLP 186.99 (mGy-cm) FINDINGS: The heart is within normal limits in size. There is no pericardial effusion. There is no evidence for middle mediastinal lymphadenopathy. The pulmonary brook are symmetric, but mild adenopathy cannot be excluded without IV contrast mater ial. 0.9 cm peripheral groundglass attenuation nodule within the left upper lobe seen on axial image 103 of series 4. 0.9 cm faint groundglass attenuation nodule within the right middle lobe subjacent to the minor fissure seen on axial image 193 of series 4. Multifocal nodular and tree-in-bud opacities within the posterior segment of the right upper lobe seen for example on axial image 131 of series 4. Findings are superimposed upon a background of advanced upper lobe predominant centrilobular and paraseptal emphysematous disease and diffuse bronchial wall thickening. Visualized portion of the upper abdomen is grossly unremarkable however technique was not optimized for evaluation. Included skeleton demonstrates no CT evidence of aggressive bone lesion. Accentuation of normal thoracic kyphosis and degenerative endplate ridging at the midthoracic spine. IMPRESSION: Subcentimeter groundglass attenuation pulmonary nodules within the left upper lobe and right middle lobe. ??Surveillance with low-dose chest CT in 12 months is recommended. Nodular and tree-in-bud opacities within the right upper lobe are favored represent an infectious or inflammatory process. Lung Rads Category: 0 - (Findings suggestive of an inflammatory or infectious process) Short interval follow-up LDCT images in 1-3 months recommended to evaluate interval resolution. [id number] [id number] [id number] [id number] Dictating Physician: ??TRINA NICHOLS MD Electronically Signed by: ??TRINA NICHOLS MD Dic Date/Time: ??09/16/22 1323 Sign date/Time: ??09/16/22 1341 Procedure Note Trina Nichols MD - 11/19/2023 [facility] Diagnostic Imaging Department [address] [place] [id number] Patient: TONI RIZZO /Age/Sex: 1955 - 67 - M Unit#: [id number] Location/Status: SPDICATLS/REG CLI [facility] Ordering Physician: TIMMY DUNCAN MD CT Lung Screening Low Dose - 09/15/22 - 1537 PROCEDURE: CT Lung Screening Low Dose INDICATION: Tobacco abuse Current smoker with 53 pack year total. COMPARISON: None. TECHNIQUE: Noncontrast low dose chest CT was performed per lung cancerCT screening protocol. [employer] VCT dose reduction, utilizing iterative reconstruction. Total exam DLP 186.99 (mGy-cm) FINDINGS: The heart is within normal limits in size. There is no pericardialeffusion. There is no evidence for middle mediastinal lymphadenopathy. The pulmonaryhila are symmetric, but mild adenopathy cannot be excluded without IV contrastmater ial. 0.9 cm peripheral groundglass attenuation nodule within the left upperlobe seen on axial image 103 of series 4. 0.9 cm faint groundglass attenuation nodule within the right middle lobe subjacent to the minor fissure seen on axial image 193 of series 4. Multifocal nodular and tree-in-bud opacities within the posterior segmentof the right upper lobe seen for example on axial image 131 of series 4. Findings are superimposed upon a background of advanced upper lobepredominant centrilobular and paraseptal emphysematous disease and diffuse bronchialwall thickening. Visualized portion of the upper abdomen is grossly unremarkable however technique was not optimized for evaluation. Included skeleton demonstrates no CT evidence of aggressive bone lesion. Accentuation of normal thoracic kyphosis and degenerative endplate ridgingat the midthoracic spine. IMPRESSION: Subcentimeter groundglass attenuation pulmonary nodules withinthe left upper lobe and right middle lobe. Surveillance with low-dose chestCT in 12 months is recommended. Nodular and tree-in-bud opacities within the right upper lobe arefavored represent an infectious or inflammatory process. Lung Rads Category: 0 - (Findings suggestive of an inflammatory orinfectious process) Short interval follow-up LDCT images in 1-3 months recommendedto evaluate interval resolution. [id number] G9557 G9551 [id number] Dictating Physician: TRINA NICHOLS MD Electronically Signed by: TRINA NICHOLS MD Dic Date/Time: 09/16/22 1323 Sign date/Time: 09/16/22 1341 Timmy Duncan MD IMG CT PROCEDURES Final Result * Colonoscopy (08/18/2021) Colonoscopy No interpretation , abstracted Anatomical Region Laterality Modality Other Historical Provider HEALTH MAINTENANCE Final Result from Last 3 Months or Most Recently Relevant to Health Maintenance Insurance [employer] - [place]IC[place] Advance Directives * Full Code - Default (Latest Code Status on File) Date Activated Date Inactivated Comments 11/27/2024 12:13 PM 11/27/2024 7:34 PM This is ord er is used when code status has not been discussed with the patient, or code status is otherwise unknown/unconfirmed To update the patient's code status, place a code status order. Do not modify or discontinue any currently active code status orders. Care Teams Office Machine Embossograph Operator Relationship Specialty Start Date End Date Ruchi Read NP [address] [place] [address] [place] [id number] PCP - General 11/12/22
[2025-03-08 13:56] LABS: Vitamin B12 567 pg/mL (200-900)
== END 2025-03-08 12:00 | disposition home or self-care (01) ==
LOC: HO.LAB 11:59
PROVIDERS: PCP Nurse Practitioner Primary Care; Visit Provider Psychiatry & Neurology Neurology
DX: F03.90 Unspecified dementia, unspecified severity, without behavioral disturbance, psychotic disturbance, mood disturbance, and anxiety (principal)
CPT/HCPCS: 36415; 82607

== ENCOUNTER 2025-05-10 10:06 | Outpatient (AMB) | payer BC, SELFPAY ==
--- NOTE | 2025-05-10 10:11 | MHC.OFFVIS ---
Intake Visit Reasons: 2 mnts Allergies No Known Allergies Allergy (Verified 05/08/25 08:42) Medication List - Last Reconciled 05/10/25 by Pro Garcia MD fluticasone propion-salmeterol 250-50 mcg/dose (Wixela Inhub) 1 ea inhalation folic acid 1 mg PO DAILY hydrochlorothiazide 25 mg PO DAILY losartan 25 mg PO DAILY sertraline 25 mg PO DAILY thiamine HCl (vitamin B1) 100 mg PO DAILY HPI Comments Details: 69 years old man with hypertension and excessive alcohol drinking, cerebral microvascular disease, multifactorial gait disorder and dementia from these issues. B12 level was normal. He has curtailed his drinking and started taking meds. He and his were very happy that he was remarkably better. [facility] Medical History (Updated 05/10/25 @ 10:27 by Pro Garcia MD) Depression Alcohol abuse Cerebral microvascular disease Multifactorial gait disorder Multifactorial dementia Review of Systems Const Details: Constitutional:?No fever, chills, fatigue, weight loss, or night sweats. HEENT:?No headache, vision changes, hearing loss, nasal congestion, sore throat. Neurological:? Feeling better Psychiatric:? Much better mood Endocrine:?No heat/cold intolerance, polydipsia, polyuria, or hair/skin changes. Hematologic/Lymphatic:?No easy bruising, bleeding, or lymphadenopathy. Integumentary (Skin):?No rash, lesions, itching, or color changes. ? Physical Exam Neuro Other: Mental Status: Alert and oriented to person, place, and time. Normal attention. Normal spontaneous speech, fluency, and comprehension. No obvious issues with mood and memory. Affect is appropriate. Cranial Nerves: CN II: Visual slaughter full to confrontation, visual acuity intact. CN III, IV, : Pupils equal, round, reactive to light and accommodation. Extraocular movements are normal. CN V: Facial sensation is normal. CN VII: Facial movements symmetrical. CN VIII: Hearing intact to bedside conversation is normal. CN IX, X: Palate elevates symmetrically. CN XI: Shoulder shrug and head turn symmetrical. CN XII: Tongue midline without atrophy or fasciculations. Extrapyramidal: Full facial expressions and blinking. No rigidity. Movements are appropriate with no tremor or abnormality. Speech: Normal; no dysarthria or tremor. Assessment & Plan Assessment & Plan (1) Multifactorial dementia: Comment: MRI brain WO at [facility] in February 2025: Mod severe diff atrophy, mod severe MVD Code(s): F03.90 - Unspecified dementia, unspecified severity, without behavioral disturbance, psychotic disturbance, mood disturbance, and anxiety Category: Medical (2) Cerebral microvascular disease: Code(s): I67.89 - Other cerebrovascular disease Category: Medical (3) Depression: Code(s): F32.A - Depression, unspecified Category: Medical Qualifiers: Depression Type: reactive depression Qualified Code(s): F32.9 - Major depressive disorder, single episode, unspecified Plan Impression: 69 yo man with depression related to his son's , subsequent heavy alcohol drinking, HTN with significant cerebral microvascular disease, all affecting his cognition and sometimes his balance. He has curtailed alcohol intake and started to take sertraline with vitamins. He was already significantly better. Rec: a: Try to quit alcohol or minimize b: Sertraline 25mg a day c: Pay attention to nutrition d: Regular exercise or walking e: Behavior counseling can also help Medications: New sertraline 25 mg PO DAILY 90 tabs 1RF Coding Level of Care Code Tele Est Pt Level 4 (29441) Diagnoses Multifactorial dementia F03.90 Cerebral microvascular disease I67.89 Reactive depression F32.9 Depression Type: reactive depression
--- OUTSIDE RECORDS SUMMARY | 2025-05-10 10:53 | XMS_ITS | Clinical Summary ---
Author Organization [address] [facility] Address [address] [place], [place] [address] [address] Phone Care Team Providers Care Chemistry Intern Name Role Phone Ruchi Read NP Primary Care Provider [phone] Allergies No known active allergies Medications Wixela Inhub 250-50 mcg/dose diskus inhaler Inhale 1 puff by mouth 2 (two) times a day. 10/17/20 24 Active ALPRAZolam (XANAX) 0.5 mg tablet Take 1 tablet 30 minutes prior to MRI scan. 2 tablet 02/01/20 25 Active folic acid (FOLVITE) 1 mg tablet Take 1 tablet (1,000 mcg total) by mouth 1 (one) time each day. for 90 days 03/08/20 25 Active sertraline (ZOLOFT) 25 mg tablet Take 1 tablet (25 mg total) by mouth 1 (one) time each day. for 30 days 03/08/20 25 Active thiamine 100 mg tablet Take 1 tablet (100 mg total) by mouth 1 (one) time each day. for 90 days 03/08/20 25 Active losartan (COZAAR) 25 mg tablet TAKE 1 TABLET BY MOUTH EVERY DAY 90 tablet 1 04/17/20 25 Active hydroCHLOROthi azide (HYDRODIURIL) 25 mg tablet Take 1 tablet (25 mg total) by mouth 1 (one) time each day. 90 tablet 1 04/18/20 25 Active losartan (Cozaar) 50 mg tablet Take 1 tablet (50 mg total) by mouth 1 (one) time each day. 90 each 1 10/17/20 24 025 Discontinued hydroCHLOROthi azide (HYDRODIURIL) 25 mg tablet TAKE 1 TABLET BY MOUTH EVERY DAY 90 tablet 1 11/07/19 025 Discontinued(Re order) Active Problems Problem Noted Date Diagnosed Date Multifactorial dementia ([facility] V24, [facility] V2 8) 04/18/2025 Overview (04/18/2025): Seeing neurology in [place] Multifactorial gait disorder 04/18/2025 Cerebral microvascular disease 04/18/2025 Alcohol abuse 04/18/2025 Major depressive disorder wi th single episode, in partial remission ([facility] V24) 04/18/2025 Chronic back pain 09/22/2024 Overview (09/22/2024): Lumbar fusion 2002. Emphysema lung ([facility] V24, [facility] V28) 2023 Tobacco use disorder 04/10/2024 Primary [...] general and how their size, shape, and change management facilitator time affect her level of suspicion for [...] discuss this with Dr. Hannah our interventional certified first assistant in the office and she will see them just after I see them. All questions were answered and I will see him after the biopsies have been completed. Encounters Date Type Department Care Team Description 03/29/2025 Telephone Pulmonolgy [facility] 175 [facility] [address] [place] [phone] Larissa Mccall MA Appointment 03/[facility] [address] [phone] Larissa Mccall MA 03/13/2025 11:30 AM EDT Office Visit Pulmonology - [place] 299 [facility] [address] [place] [phone] Annelise Martienz MD SOB (shortness of breath) (Primary Dx); Lung nodules 02/28/2025 2:30 PM EDT - 02/28/2025 11:59 PM EDT Hospital Encounter Radiology Department [address] [phone] Falls frequently; Weakness; Syncope, unspecified syncope type Discharge Disposition: Home or Self Care 02/26/2025 8:53 AM EDT - 02/26/2025 11:59 PM EDT Hospital Encounter [facility] CT Scan [address] [place] [phone] Pneumonia due to infectious organism, unspecified laterality, unspecified part of lung Discharge Disposition: Home or Self Care 02/20/2025 Telephone [facility] Medicine - [facility] [address] [facility] [place] [phone] Ruchi Read NP MRI 02/16/2025 9:33 AM EDT - 02/16/2025 11:59 PM EDT Hospital Encounter Radiology Department - [address] [phone] Falls frequently; Weakness; Syncope, unspecified syncope type Discharge Disposition: Home or Self Care 02/16/2025 9:33 AM EDT - 02/16/2025 11:59 PM EDT Hospital Encounter Radiology Department - [address] [phone] Falls frequently; Weakness; Syncope, unspecified syncope type Discharge Disposition: Home or Self Care from Last 3 Months Surgical History Surgery Date Site/Laterality Comments BACK SURGERY PROCEDURE: HISTORICAL BACK SURGERY HERNIA REPAIR PROCEDURE: HISTORICAL HERNIA REPAIR/ING BACK SURGERY PROCEDURE: HISTORICAL BACK SURGERY CATARACT EXTRACTION PROCEDURE: HISTORICAL CATARACT REMOVAL COLONOSCOPY TONSILLECTOMY Medical History Medical History Date Comments History of colonoscopy 08/2011 DX:Histor y of colonoscopy; COMMENT: 10 yr f/u Dr. Tena Current smoker DX:Current smoke r Unspecified hemorrhoids DX:Unspe cified hemorrhoids Diverticulitis of colon (wit hout mention of hemorrhage)(562.11) DX:Diverticulitis of colon ( without mention of hemorrhage)(562.11) Diverticulosis DX:Diverticulosi s Hemorrhoids DX:Hemorrhoids Nontoxic single thyroid nodule D X:Nontoxic single thyroid nodule; COMMENT: s/p biopsy- benign pathology Pulmonary nodule DX:Pulmonary no dule Hypertension Emphysema of lung ([facility] V 24, [facility] V28) Reported by Family History Medical History Relation Name Comments Lung cancer Father Diabetes Mother Relation Name Status Comments Father Mother Social History Tobacco Use Types Packs/Day Years Used Date Smoking Tobacco: Former Cigarettes 1 56.1 0 10/18/1968 - 11/2024 Smokeless Tobacco: Never Tobacco Cessation:Counseling Given: Not Answered Comments:11/22/2024 Decreased to 0.5PPD Pt quit 3 months ago Alcohol Use Standard Drinks/Week Comments Yes 0 [...] Sign Reading Time Taken Comments Blood Pressure 169/87 03/13/2025 11:22 AM EDT Pulse 92 03/13/2025 11:22 AM EDT Temperature 36.8 C (98.2 F) 03/13/2025 11:22 AM EDT Respiratory Rate 14 12/05/2024 10:30 AM EST Oxygen Saturation 98% 03/13/2025 11:22 AM EDT Inhaled Oxygen Concentration - - Weight 73.2 kg (161 lb 6.4 oz) 03/13/2025 11:22 AM EDT Height 182.9 cm (6') 03/13/2025 11:22 AM EDT Body Mass Index 21.89 03/13/2025 11:22 AM EDT Plan of Treatment Health Maintenance Due Date Last Done Comments DTaP,Tdap,and Td Vaccines (1 - Tdap) 1972 Hepatitis A Vaccines (1 of 2 - Risk 2-dose series) 1972 Pneumococcal Vaccine: 50+ Years (1 of 2 - PCV) 1972 Zoster Vaccines (1 of 2) 2003 RSV Immunization Adult Patients (1 - Risk 60-74 years 1-dose series) 2013 Lung Cancer Screening (Low Dose CT) 11/16/2023 09/16/2022 Medicare Annual Wellness Visit 11/16/2023 Social Influencers of Health Screening 11/16/2023 COVID-19 Vaccine ( season) 2024 01/09/2021, 12/13/2020 Depression Screening 10/18/2024 Influenza Vaccine (#1) 2025 Falls Risk Assessment 11/27/2025 11/27/2024 Hypertension/CHF/CAD [...] Routine 01/02/2025 1:50 PM EDT Renal mass LIPID PANEL Routine 06/02/2024 HEPATITIS C SCREENING Routine 02/16/2023 CT LUNG SCREENING LOW DOSE Routine 09/16/2022 1:41 PM EST Personal history of nicotine dependence HM COLONOSCOPY Routine 08/18/2021 from Last 3 Months or Most Recently Relevant to Health Maintenance Results * Vascular US duplex carotid bilateral (02/28/2025 2:54 PM EDT) Anatomical Region Laterality Modality Vascular, Abdomen Ultrasound 02/28/2025 4:12 PM EDT Impressions 02/28/2025 4:17 PM EDT Multiple bilateral atherosclerotic plaques, left greater than the right. No evidence of 50% or greater stenosis in the internal carotid arteries. -------- FINAL REPORT -------- Dictated By: Vianey Montiel Dictated Date: 02/28/2025 16:12 ET Assigned Physician: Vianey Montiel Reviewed and Electronically Signed By: Vianey Montiel Signed Date: 02/28/2025 16:17 ET Workstation ID: [id number] Transcribed By: Self Edit Transcribed Date: 02/28/2025 16:12 ET Narrative 02/28/2025 4:17 PM EDT EXAM: VAS US DUPLEX CAROTID BILATERAL COMPARISON:None [...] Signed Date: 02/28/2025 16:17 ET Workstation ID: [id number] Transcribed By: Self Edit Transcribed Date: 02/28/2025 [...] CT is recommended in 6 months. Telerad PA ([id number]) -------- FINAL REPORT -------- Dictated By: Cami Ku Dictated Date: 02/26/2025 10:11 ET Assigned Physician: Cami Ku Reviewed and Electronically Signed By: Cami Ku Signed Date: 02/26/2025 10:26 ET Workstation ID: [id number] Transcribed By: Self Edit Transcribed Date: 02/26/2025 10:11 ET Narrative 02/26/2025 10:26 AM EDT History: Pneumonia. COPD exacerbation. [facility] ([facility]), PET CT 10/31/24 ([facility]) Technique: Helical volumetric imaging of the thorax was performed without IV contrast. DLP: 697.89 mGy/cm GE Lightspeed VCT Iterative reconstruction technique Findings: The metabolically [...] 02/26/2025 History: Pneumonia. COPD exacerbation. Comparison: 09/26/24 ([facility]), 09/17/23 ([facility]),PET CT 10/31/24 ([facility]) Technique: Helical volumetric imaging of the thorax was performed withoutIV contrast. DLP: 697.89 mGy/cm GE BinOpticspeed VCT Iterative reconstruction technique Findings: The metabolically [...] is recommended in 6 months. Telerad KEITH ([id number]) -------- FINAL REPORT -------- Dictated By: Cami Ku Dictated Date: 02/26/2025 10:11 ET Assigned Physician: Cami Ku Reviewed and Electronically Signed By: Cami Ku Signed Date: 02/26/2025 10:26 ET Workstation ID: [id number] Transcribed By: Self Edit Transcribed Date: 02/26/2025 10:11 ET us Annelise Martinez MD IMG CT PROCEDURES Final Re sult * MR Lumbar Spine wo Contrast (02/16/2025 11:13 AM EDT) Anatomical Region Laterality Modality L-spine, Spine Magnetic Resonan ce 02/16/2025 5:17 PM EDT Impressions 02/18/2025 4:04 PM EDT Diffuse degenerative changes. No evidence of nerve root impingement or high-grade spinal canal stenosis. POS - [id number] -------- FINAL REPORT -------- Dictated By: Jennifer Salvador Dictated Date: 02/16/2025 17:17 ET Assigned Physician: Jennifer Salvador Reviewed and Electronically Signed By: Jennifer Salvador Signed Date: 02/18/2025 16:04 ET Workstation ID: [id number] Transcribed By: Self Edit Transcribed Date: 02/16/2025 17:48 ET Narrative 02/18/2025 4:04 PM EDT EXAM: Lumbar spine MRI HISTORY: Low back pain. Progressive neurologic deficit. Weakness. Frequent falls. Remote history of prior surgery. COMPARISON: None CORRELATION: None TECHNIQUE: Exam performed on a 1.5 Mikki high-field MRI scanner. Multiplanar imaging performed without contrast. FINDINGS: Numbering of the vertebral bodies is based on the assumption that inferior most disc space is L5-S1. Conus medullaris terminates at L1-2 which is within normal limits. No abnormal cord signal. Vertebral body heights are maintained. 1 cm T1/T2 hyperintense signal lesion within L2 likely represents a hemangioma. Possible other small hemangiomas versus heterogeneous fat signal in the vertebral bodies. Irregular dark signal in the partially imaged right femoral head on the localizer sequences corresponds with irregular sclerosis in the femoral head on prior PET/CT exams from 2022 and 2023 likely representing avascular necrosis. L1-L2: No significant disc bulging or evidence of a disc protrusion or extrusion. Bilateral facet arthropathy. No significant neural foraminal narrowing or spinal canal stenosis. L2-L3: Disc desiccation and minimal disc bulging. Small disc protrusion into the left inferior neural foramen without mass effect on the exiting nerve root. Bilateral facet arthropathy. Left foraminal endplate spurring. No significant neural foraminal narrowing or spinal canal stenosis. L3-L4: Disc desiccation, disc bulging, and a possible superimposed very small central disc protrusion. Bilateral facet arthropathy. Left foraminal endplate spurring. No significant neural foraminal narrowing or spinal canal stenosis. L4-L5: Disc desiccation and disc bulging asymmetrically prominent to the right. Bilateral facet arthropathy. Right foraminal endplate spurring. Mild to moderate right and mild left neural foraminal narrowing. No significant spinal canal stenosis. L5-S1: Disc desiccation, moderate loss of disc height, and disc bulging. Bilateral facet arthropathy, right greater than left. Laminectomy changes on the left. Posterior endplate spurring in the right paracentral region and in the foraminal regions. Mild right neural foraminal narrowing. No significant left neural foraminal narrowing or spinal [...] impingement orhigh-grade spinal canal stenosis. POS - [id number] -------- FINAL REPORT -------- Dictated By: Jennifer Salvador Dictated Date: 02/16/2025 17:17 ET Assigned Physician: Jennifer Salvador Reviewed and Electronically Signed By: Jennifer Salvador Signed Date: 02/18/2025 16:04 ET Workstation ID: [id number] Transcribed By: Self Edit Transcribed Date: 02/16/2025 17:48 ET Ruchi Read NP IMG MRI PROCEDURES Final Result * MR Brain wo Contrast (02/16/2025 10:53 AM EDT) Anatomical Region Laterality Modality Head and Neck Magnetic Resonan ce 02/16/2025 4:57 PM EDT Impressions 02/19/2025 9:29 AM EDT Extensive nonspecific white matter signal abnormalities and a small signal abnormality in the angeles. Findings could be due to chronic small vessel ischemic disease. No evidence of recent ischemia. No mass or mass effect. Atrophy. POS - [id number] -------- FINAL REPORT -------- Dictated By: Jennifer Salvador Dictated Date: 02/16/2025 16:57 ET Assigned Physician: Jennifer Salvador Reviewed and Electronically Signed By: Jennifer Salvador Signed Date: 02/19/2025 09:29 ET Workstation ID: [id number] Transcribed By: Self Edit Transcribed Date: 02/16/2025 17:17 ET Narrative 02/19/2025 9:29 AM EDT EXAM: Brain MRI HISTORY: Memory loss. Dizziness. Frequent falls. COMPARISON: None CORRELATION: None TECHNIQUE: Exam performed on a 1.5 Mikki high-field MRI scanner. Multiplanar imaging performed without contrast. FINDINGS: No restricted diffusion to indicate a recent infarct. No evidence of intracranial hemorrhage. Extensive confluent, patchy, and globular T2/FLAIR hyperintense white matter signal abnormalities. Patchy T2/FLAIR hyperintense signal in the angeles. No evidence of a mass, mass effect, or midline shift. Mild generalized atrophy. No hydrocephalus. Basal cisterns are patent. No cerebellar ectopia. Pituitary gland is not enlarged. Normal vascular flow-voids appear present in the major intracranial arteries at the skull base. Multi sinus mild mucosal thickening. No significant fluid signal within mastoid air cells. [...] No mass or masseffect. Atrophy. POS - [id number] -------- FINAL REPORT -------- Dictated By: Jennifer Salvador Dictated Date: 02/16/2025 16:57 ET Assigned Physician: Jennifer Salvador Reviewed and Electronically Signed By: Jennifer Salvador Signed Date: 02/19/2025 09:29 ET Workstation ID: [id number] Transcribed By: Self Edit Transcribed Date: 02/16/2025 17:17 ET Ruchi Read NP IMG MRI PROCEDURES Final Result * (ABNORMAL) Comprehensive metabolic panel (01/29/2025 2:38 PM EDT) Sodium 137 133 - 145 mmol/L LAB CHEMISTRY METHOD 01/29/2025 7:04 PM [facility] Potassium 5.2 3.5 - 5.5 mmol/L LAB CHEMISTRY METHOD 01/29/2025 7:04 PM [facility] Chloride 101 96 - 110 mmol/L LAB CHEMISTRY METHOD 01/29/2025 7:04 PM [facility] CO2 28 21 - 32 mmol/L LAB CHEMISTRY METHOD 01/29/2025 7:04 PM [facility] Anion Gap 8 3 - 11 LAB CHEMISTRY METHOD 01/29/2025 7:04 PM [facility] Glucose 108(H) 70 - 100 mg/dL LAB CHEMISTRY METHOD 01/29/2025 7:04 PM [facility] BUN 24 5 - 25 mg/dL LAB CHEMISTRY METHOD 01/29/2025 7:04 PM [facility] Creatinine 1.11 0.70 - 1.30 mg/dL LAB CHEMISTRY METHOD 01/29/2025 7:04 PM [facility] eGFR 71 >=60 mL/min/1. 73m2 LAB CHEMISTRY METHOD 01/29/2025 7:04 PM [facility] Comment:Calculation based on the Chronic Kidney Disease Epidemiology Collaboration (CKD-EPI) equation refit without adjustment for race. BUN/Creatinine Ratio 21.6 LAB CHEMISTRY METHOD 01/29/2025 7:04 PM [facility] Calcium 10.1 8.5 - 10.5 mg/dL LAB CHEMISTRY METHOD 01/29/2025 7:04 PM EDT [facility] AST (SGOT) 44(H) 10 - 42 unit/L LAB CHEMISTRY METHOD 01/29/2025 7:04 PM EDT [facility] ALT (SGPT) 35 10 - 60 unit/L LAB CHEMISTRY METHOD 01/29/2025 7:04 PM EDT [facility] Alkaline Phosphatase 76 42 - 121 unit/L LAB CHEMISTRY METHOD 01/29/2025 7:04 PM EDT [facility] Total Protein 8.2(H) 6.0 - 8.0 g/dL LAB CHEMISTRY METHOD 01/29/2025 7:04 PM EDT [facility] Albumin 3.9 3.2 - 5.0 g/dL LAB CHEMISTRY METHOD 01/29/2025 7:04 PM EDT [facility] Total Bilirubin 0.8 0.0 - 1.4 mg/dL LAB CHEMISTRY METHOD 01/29/2025 7:04 PM EDT [facility] Blood Venous blood specimen / Unknown Venipuncture / Unknown 01/29/2025 2:38 PM EDT 01/29/2025 2:39 PM EDT Ruchi Read NP LAB BLOOD ORDERABLES Final Resu lt [facility] [address] [place] [address], * US Retroperitoneal Limited (01/02/2025 1:50 PM EDT) Anatomical Region Laterality Modality Body Ultrasound 01/02/2025 1:57 PM EDT Impressions 01/02/2025 1:58 PM EDT Normal renal ultrasound. -------- FINAL REPORT -------- Dictated By: Kiera Bush Dictated Date: 01/02/2025 13:57 ET Assigned Physician: Kiera Bush Reviewed and Electronically Signed By: Kiera Bush Signed Date: 01/02/2025 13:58 ET Workstation ID: [id number] Transcribed By: Self Edit Transcribed Date: 01/02/2025 13:57 ET Narrative 01/02/2025 1:58 PM EDT US RETROPERITONEAL LIMITED HISTORY: Renal mass. Nonspecific right upper pole renal activity on PET scan. Prior study: None currently available. FINDINGS: The right kidney measures 12.1 cm in length. The left kidney measures 10.8 cm in length. Both kidneys demonstrate normal echotexture. No hydronephrosis, masses, calculi, or perinephric collections are [...] Signed Date: 01/02/2025 13:58 ET Workstation ID: [id number] Transcribed By: Self Edit Transcribed Date: 01/02/2025 13:57 ET Ruchi Read NP IMG US PROCEDURES Final Result * Lipid panel (06/02/2024) LDL/HDL Ratio 2 Triglycerides 110 mg/dL Cholesterol 257 mg/dL HDL 132 mg/dL LDL Cholesterol 103 mg/dL Blood Venous blood specimen / Unknown Historical Provider LAB BLOOD ORDERABLES Elisa l Result * Hepatitis C Screening (02/16/2023) Hepatitis C Screening negative us Historical Provider HEALTH MAINTENANCE Final Result * CT LUNG SCREENING LOW DOSE (09/16/2022 1:41 PM EST) Anatomical Region Laterality Modality Computed Tomogra phy 09/15/2022 3:31 PM EST Narrative 09/16/2022 1:41 PM EST [facility] Diagnostic Imaging Department [address] [place] [id number] Patient: TONI RIZZO /Age/Sex: 1955 - 67 - M Unit#: [id number] Location/Status: SPDICATLS/REG CLI Mnemonic/Ordering Site: [facility] Ordering Physician: TIMMY DUNCAN MD CT Lung Screening Low Dose - 09/15/22 - 1537 PROCEDURE: CT Lung Screening Low Dose INDICATION: Tobacco abuse Current smoker with 53 pack year total. COMPARISON: None. TECHNIQUE: Noncontrast low dose chest CT was performed per lung cancer CT screening protocol. Voucheres VCT dose reduction, utilizing iterative reconstruction. Total [...] and right middle lobe. Surveillance with low-dose chest CT in 12 months [...] Date/Time: 09/16/22 1323 Sign date/Time: 09/16/22 1341 Procedure Note Trina Nichols MD - 11/19/2023 [facility] Diagnostic Imaging Department [address] [place] [id number] Patient: TONI RIZZO /Age/Sex: 1955 - 67 - M Unit#: [id number] Location/Status: SPDICATLS/REG CLI Mnemonic/Ordering Site: [facility] Ordering Physician: TIMMY DUNCAN MD CT Lung Screening Low Dose - 09/15/22 - 1537 PROCEDURE: CT Lung Screening Low Dose INDICATION: Tobacco abuse Current smoker with 53 pack year total. COMPARISON: None. TECHNIQUE: Noncontrast low dose chest CT was performed per lung cancerCT screening protocol. Voucheres VCT dose reduction, utilizing iterative reconstruction. Total [...] currently active code status orders. Care Teams Chemistry Intern Relationship Specialty Start Date End Date Ruchi Read NP [address] [place] [address] PCP - General 11/12/22
--- OUTSIDE RECORDS SUMMARY | 2025-05-10 10:53 | XMS_ITS ---
Author Name [facility] Organization Unknown Results Test Name/Text Value Interpretation Date Range Source Citation Ref Lab Test The technical components of [place] [address] CLIA # [id number] Normal 11/30/2024 [facility] Ref Lab Test Results See Scanned Result 03/13/2025 [facility] Ref Lab Test Results See Scanned Result Normal 01/15/2025 [facility] Ref Lab Test Results See Scanned Result 03/13/2025 [facility] Ref Lab Test Results See Scanned Result Normal 01/15/2025 [facility] Ref Lab Test Results See Scanned Result 03/13/2025 [facility] Ref Lab Test Results See Scanned Result Normal 01/15/2025 [facility] History of Medication Use Medication Directions [...] access Signed Summary: Until discontinued, Starting on 11/27/24 at 1214, Until Specified, Preprocedure [Order 2 [...] Date Problem Type Date of Resolution Source Pulmonary nodule active 2023-01-19 ProblemAct C T_[facility] Tobacco use disorder active 2024-04-10 ProblemAct [facility] Primary hypertension active 2024-02-23 ProblemAct [facility] Emphysema lung active 2024-06-[address] [facility]_ [facility] Chronic back pain active 2024-09-22 ProblemAct [facility] Pain active EncounterDiagnosisAct CT_[facility] Encounters Encounter Type Encounter Reason Primary Diagnosis Location Date Ambulatory Pain, unspecified Pain, unspecified [facility] 11/27/2024 Care Team Organization Name Specialty Phone Email Start Date End Da te [facility] Primary Care 12/27/2024 [facility] Primary Care 11/27/2024
== END 2025-05-10 10:26 | disposition home or self-care (01) ==
LOC: HO.HSM 10:06
PROVIDERS: PCP Nurse Practitioner Primary Care; Visit Provider Psychiatry & Neurology Neurology
DX: F03.90 Unspecified dementia, unspecified severity, without behavioral disturbance, psychotic disturbance, mood disturbance, and anxiety (principal); I67.89 Other cerebrovascular disease; F32.9 Major depressive disorder, single episode, unspecified
CPT/HCPCS: 99214

== ENCOUNTER 2025-06-28 15:35 | Outpatient (AMB) | payer BC, SELFPAY ==
--- NOTE | 2025-06-28 15:46 | A.OFFVIS_ITS ---
Intake Visit Reasons: 2M Allergies No Known Allergies Allergy (Verified 05/08/25 08:42) HPI Comments Details: 69 yo man with depression related to his son's , subsequent heavy alcohol drinking, HTN with significant cerebral microvascular disease, all affecting his cognition and sometimes his balance. On 12/22/2024 he was driving in months and when he was stopped by police. Apparently his automobile was wavering little bit but he was not found to be intoxicated and was able to answer questions. Since then he has not been driving. He did not have any other similar episodes. 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 Normal attention. Normal spontaneous speech, fluency, and comprehension. Cranial Nerves: CN II: Visual slaughter full to confrontation, visual acuity intact. CN III, IV, : Pupils equal, round, reactive to light and accommodation. Extraocular movements are normal. CN V: Facial sensation is normal. CN VII: Facial movements symmetrical. CN VIII: Hearing intact to bedside conversation is normal. CN IX, X: Palate elevates symmetrically. CN XI: Shoulder shrug and head turn symmetrical. CN XII: Tongue midline without atrophy or fasciculations. Extrapyramidal: Full facial expressions and blinking. No rigidity. Movements are appropriate with no tremor or abnormality. Speech: Normal; no dysarthria or tremor. Assessment & Plan Assessment & Plan (1) Multifactorial dementia: Comment: MRI brain WO at [place] in February 2025: Mod severe diff atrophy, mod severe MVD Code(s): F03.90 - Unspecified dementia, unspecified severity, without behavioral disturbance, psychotic disturbance, mood disturbance, and anxiety Category: Medical (2) Cerebral microvascular disease: Code(s): I67.89 - Other cerebrovascular disease Category: Medical (3) Depression: Code(s): F32.A - Depression, unspecified Category: Medical Qualifiers: Depression Type: reactive depression Qualified Code(s): F32.9 - Major depressive disorder, single episode, unspecified Plan Impression: a: Mild dementia b: Stress/anxiety Rec: continue sertraline, no alcohol Coding Level of Care Code Est Pt Level 4 (87203) Diagnoses Multifactorial dementia F03.90 Cerebral microvascular disease I67.89 Reactive depression F32.9 Depression Type: reactive depression
== END 2025-06-28 16:01 | disposition home or self-care (01) ==
LOC: HO.HSM 15:35
PROVIDERS: PCP Nurse Practitioner Primary Care; Visit Provider Psychiatry & Neurology Neurology
DX: F03.90 Unspecified dementia, unspecified severity, without behavioral disturbance, psychotic disturbance, mood disturbance, and anxiety (principal); I67.89 Other cerebrovascular disease; F32.9 Major depressive disorder, single episode, unspecified
CPT/HCPCS: 99214